=== PATIENT | female | born 1995 | race Caucasian/White ===

== ENCOUNTER 2018-03-27 13:47 | Emergency (ER) | payer OTHER ==
[2018-03-27 14:13] VITALS: BP 100/65
[2018-03-27] MEDS ORDERED: Tetan/Diph/Pertus SYR(Tdap)* 0.5 ML SYR(BOOSTRIX) use SYR IM ONE (14:17)
--- NOTE | 2018-03-27 14:32 | ED ---
Skin Complaint - HPI Summary HPI Summary: 23 yr old cut right lateral calf on piece of glass when taking out her trash. Injury occurred in mid morning. Tdap unknown last. Complains of some oozing. No other complaints. - History of Current Complaint Chief Complaint: UCLaceration Time Seen by Provider: 03/27/18 14:14 Stated Complaint: RIGHT LEG LACERATION Hx Last Menstrual Period: 03/15/18 Pain Intensity: 2 - Allergy/Home Medications Allergies/Adverse Reactions: Allergies Allergy/AdvReac Type Severity Reaction Status Date / Time No Known Allergies Allergy Verified 03/27/18 14:10 Home Medications: Home Medications Levonorgestrel (Iud) [Liletta IUD] 18.6 mcg IU ONCE 03/27/18 [History Confirmed 03/27/18] PMH/Surg Hx/FS Hx/Imm Hx Endocrine/Hematology History: Denies: Hx Diabetes, Hx Thyroid Disease Cardiovascular History: Denies: Hx Congestive Heart Failure, Hx Deep Vein Thrombosis, Hx Hypertension , Hx Myocardial Infarction, Hx Pacemaker/ICD Respiratory History: Denies: Hx Asthma, Hx Chronic Obstructive Pulmonary Disease (COPD), Hx Lung Cancer, Hx Pneumonia, Hx Pulmonary Embolism GI History: Denies: Hx Gall Bladder Disease, Hx Gastrointestinal Bleed, Hx Ulcer, Hx Urosepsis History: Denies: Hx Kidney Stones, Hx Renal Disease Sensory History: Denies: Hx Hearing Aid Neurological History: Denies: Hx Dementia, Hx Migraine, Hx Seizures, Hx Transient Ischemic Attacks (TIA) Psychiatric History: Denies: Hx Anxiety, Hx Depression, Hx Panic Disorder, Hx Schizophrenia, Hx Bipolar Disorder Infectious Disease History: No Infectious Disease History: Denies: Traveled Outside the [place] in Last 30 Days - Family History Known Family History: Positive: None Negative: Diabetes - Social History Occupation: Employed Full-time Alcohol Use: Occasionally Substance Use Type: Reports: None Smoking Status (MU): Never Smoked Tobacco Review of Systems Constitutional: Negative Positive: Other - cut on leg All Other Systems Reviewed And Are Negative: Yes Physical Exam Vital Signs On Initial Exam: Initial Vitals Temp Pulse Resp BP Pulse Ox 98.7 F 80 18 100/65 99 03/27/18 14:06 03/27/18 14:06 03/27/18 14:06 03/27/18 14:06 03/27/18 14:06 Procedures - Laceration/Wound Repair 1 Location: lower extremity Description: Linear Length, Depth and Shape: 4 cm superficial laceration barely through the epidermus, No FB Betadine Prep?: No Irrigated w/ Saline (ccs): 300 Laceration/Wound Explored: clean Closure: Skin Adhesive Sterile Dressing Applied?: No - wound was glued. Diagnostics - Vital Signs Vital Signs Temp Pulse Resp BP Pulse Ox 03/27/18 14:06 98.7 F 80 18 100/65 99 - Laboratory Lab Statement: Any lab studies that have been ordered have been reviewed, and results considered in the medical decision making process. Course/Dx - Course Course Of Treatment: superficial leg lac. no FB. The wound was glued with good approximation. TDAP updated. DC home. - Diagnoses Provider Diagnoses: Laceration Discharge - Sign-Out/Discharge Documenting (check all that apply): Patient Departure - Discharge Plan Condition: Good Disposition: HOME Patient Education Materials: Skin Adhesive Care (ED), Laceration (DC) Referrals: Zonia Tyson PA [Primary Care Provider] - 2 Days - Billing Disposition and Condition Condition: GOOD Disposition: Home
== END 2018-03-27 14:35 | disposition home or self-care (01) ==
LOC: UCCORT 13:47
DX: S81.811A Laceration without foreign body, right lower leg, initial encounter (principal); W25.XXXA Contact with sharp glass, initial encounter; Y93.89 Activity, other specified; Y92.008 Other place in unspecified non-institutional (private) residence as the place of occurrence of the external cause
CPT/HCPCS: 90715; 96372; 99211; G0463

== ENCOUNTER 2019-02-12 13:10 | Emergency (ER) | payer OTHER ==
[2019-02-12 13:32] VITALS: BP 106/66
--- NOTE | 2019-02-12 14:01 | UC ---
General HPI - HPI Summary HPI Summary: on 02/06/19, pt picked up a 30 month old child while at work. the child threw himself in an effort to get away and "strained my arm"-pt is pointing to her L lower bicep. she noted some ongoing mild soreness to that area but was able to continue working. she states that over the weekend, she did a lot of lifting at a garage sale. upon waking this am, she noted "pain in my back" "around my shoulder blade"-pt is pointing to her L medial shoulder blade area. she self tx with heat, motrin 600mg at 6am and then 400mg at 10am. she denies neck pain and numbness/tingling L arm. - History of Current Complaint Chief Complaint: UCUpperExtremity Stated Complaint: WC-LEFT ARM INJURY(02/06/19) Time Seen by Provider: 02/12/19 13:21 Hx Obtained From: Patient Hx Last Menstrual Period: IUD Pain Intensity: 6 Aggravating: movement Associated Signs & Symptoms: Negative: Chest Pain, SOB - Allergy/Home Medications Allergies/Adverse Reactions: Allergies Allergy/AdvReac Type Severity Reaction Status Date / Time No Known Allergies Allergy Verified 02/12/19 13:25 Home Medications: Home Medications busPIRone TAB* [Buspar *] 30 mg PO BID 02/12/19 [History Confirmed 02/12/19] PMH/Surg Hx/FS Hx/Imm Hx Psychological History: Anxiety - Surgical History Surgical History: None - Family History Known Family History: Positive: None Negative: Diabetes - Social History Occupation: Employed Full-time Alcohol Use: Occasionally Substance Use Type: None Smoking Status (MU): Never Smoked Tobacco - Immunization History Most Recent Influenza Vaccination: has not had Review of Systems All Other Systems Reviewed And Are Negative: No Skin: Negative: Rash Musculoskeletal: Negative: Decreased ROM, Edema Neurological: Negative: Weakness, Paresthesia, Numbness Physical Exam Triage Information Reviewed: Yes Appearance: Well-Appearing Vital Signs: Initial Vital Signs Temp 97.7 F 02/12/19 13:27 Pulse 81 02/12/19 13:27 Resp 16 02/12/19 13:27 BP 106/66 02/12/19 13:27 Pulse Ox 99 02/12/19 13:27 Vital Signs Reviewed: Yes Neck: Positive: Supple, Nontender, No Lymphadenopathy, Other: - c-spine is non tender. Respiratory: Positive: No respiratory distress Cardiovascular: Positive: RRR Musculoskeletal: Positive: Other: - Pt's trunk, back and LUE are without gross deformtiy, swelling or discoloration. Her spine in non tender to palpation and rom is intact. There is tenderness over the left side of her trapezius mm, medial to the L scapula. The scapula in non tender. LUE: no gross deformity, swelling or discoloration. pt has mild tenderness over her distal bicep only. she is able to contract that bicep wihout complaints. the shoulder, tricep, elbow, forearm, wrist and hand arm non tender. The entire LUE has full s/v/m function including ROM. The shoulder has a negative drop arm test and negative anterior stress test. Neurological: Positive: Alert Psychological: Positive: Age Appropriate Behavior Skin Exam: Normal Skin: Negative: Rashes Course/Dx - Differential Dx - Multi-Symptom Differential Diagnoses: Other - no concern for fx or dislocation. hx and PE supports a bicep mm strain on 02/06/19. the trapezius mm strain began after pt reports doing a lot of lift at a garage sale over the weekend. will tx with an nsaid, mm relaxor and limited duty plus refer to occ med. - Diagnoses Provider Diagnosis: Strain of left biceps, Trapezius muscle strain Discharge - Sign-Out/Discharge Documenting (check all that apply): Patient Departure All imaging exams completed and their final reports reviewed: No Studies - Discharge Plan Condition: Stable Disposition: HOME Prescriptions: Cyclobenzaprine TAB* [Flexeril 10 MG TAB*] 10 mg PO TID PRN #10 tab PRN Reason: Spasms - Muscle Ibuprofen TAB* [Motrin TAB* 600 MG] 600 mg PO Q8H 5 Days #15 tab Patient Education Materials: Muscle Strain (ED) Referrals: Ron Garcia MD [Medical Doctor] - 4 Days - Billing Disposition and Condition Condition: STABLE Disposition: Home
== END 2019-02-12 14:17 | disposition home or self-care (01) ==
LOC: UCCORT 13:10
DX: S46.212A Strain of muscle, fascia and tendon of other parts of biceps, left arm, initial encounter (principal); X50.0XXA Overexertion from strenuous movement or load, initial encounter; Y93.89 Activity, other specified; Y92.9 Unspecified place or not applicable; M65.812 Other synovitis and tenosynovitis, left shoulder; Y92.008 Other place in unspecified non-institutional (private) residence as the place of occurrence of the external cause; F41.9 Anxiety disorder, unspecified
CPT/HCPCS: 99212; G0463

== ENCOUNTER 2019-02-17 17:06 | Emergency (ER) | payer OTHER ==
[2019-02-17] MEDS ORDERED: Acetaminophen TAB* 325 MG PO ONE (17:33)
--- NOTE | 2019-02-17 17:35 | ED ---
Throat Pain/Nasal Congestion - HPI Summary HPI Summary: 24 yr old female with the complaint of fever, chills, sore throat, headache, mild nausea. The patient has been ill for about one day. The patient feels a litte light headed and dizzy. She denies diarrhea. She denies urinary symptoms. - History of Current Complaint Chief Complaint: UCRespiratory Time Seen by Provider: 02/17/19 17:33 - Allergies/Home Medications Allergies/Adverse Reactions: Allergies Allergy/AdvReac Type Severity Reaction Status Date / Time No Known Allergies Allergy Verified 02/17/19 17:18 Home Medications: Home Medications Ibuprofen TAB* [Motrin TAB* 600 MG] 400 mg PO Q8H PRN 02/17/19 [History] PMH/Surg Hx/FS Hx/Imm Hx Endocrine/Hematology History: Denies: Hx Diabetes, Hx Thyroid Disease Cardiovascular History: Denies: Hx Congestive Heart Failure, Hx Deep Vein Thrombosis, Hx Hypertension , Hx Myocardial Infarction, Hx Pacemaker/ICD Respiratory History: Denies: Hx Asthma, Hx Chronic Obstructive Pulmonary Disease (COPD), Hx Lung Cancer, Hx Pneumonia, Hx Pulmonary Embolism GI History: Denies: Hx Gall Bladder Disease, Hx Gastrointestinal Bleed, Hx Ulcer, Hx Urosepsis History: Denies: Hx Kidney Stones, Hx Renal Disease Neurological History: Denies: Hx Dementia, Hx Migraine, Hx Seizures, Hx Transient Ischemic Attacks (TIA) Psychiatric History: Denies: Hx Anxiety, Hx Depression, Hx Panic Disorder, Hx Schizophrenia, Hx Bipolar Disorder Infectious Disease History: No Infectious Disease History: Denies: Traveled Outside the [place] in Last 30 Days - Family History Known Family History: Positive: None Negative: Diabetes - Social History Alcohol Use: Occasionally Substance Use Type: Reports: None Smoking Status (MU): Never Smoked Tobacco Review of Systems Positive: Fever, Chills Positive: Sore Throat Positive: Myalgia Positive: Headache All Other Systems Reviewed And Are Negative: Yes Physical Exam Triage Information Reviewed: Yes Vital Signs On Initial Exam: Initial Vitals Temp Pulse Resp BP Pulse Ox 101.1 F 126 20 119/66 99 02/17/19 17:21 02/17/19 17:21 02/17/19 17:21 02/17/19 17:21 02/17/19 17:21 Vital Signs Reviewed: Yes Appearance: Positive: Well-Appearing, No Pain Distress Skin: Positive: Warm, Skin Color Reflects Adequate Perfusion Head/Face: Positive: Normal Head/Face Inspection Eyes: Positive: EOMI, [place], Other: - no photophobia, no neck stiffness ENT: Positive: Pharyngeal erythema, TMs normal. Negative: Nasal congestion, Nasal drainage Neck: Positive: Nontender. Negative: Nuchal Rigidity Respiratory/Lung Sounds: Positive: Clear to Auscultation, Breath Sounds Present Cardiovascular: Positive: RRR. Negative: Murmur Abdomen Description: Negative: Distended Musculoskeletal: Positive: Strength/ROM Intact Neurological: Positive: Sensory/Motor Intact, Alert, Oriented to Person Place, Time, CN Intact II-III, Normal Gait, Speech Normal Psychiatric: Positive: Normal Diagnostics - Vital Signs Vital Signs Temp Pulse Resp BP Pulse Ox 02/17/19 17:21 101.1 F 126 20 119/66 99 - Laboratory Lab Statement: Any lab studies that have been ordered have been reviewed, and results considered in the medical decision making process. Re-Evaluation - Re-Evaluation First Eval Re-Evaluation Time: 18:43 Change: Improved Comment: On reevaluation the patient states she feels much better after tylenol motrin. She would like to go home. EENT Course/Dx - Course Course Of Treatment: 24 yr old with viral syndrome, fever, sore throat. Rapid strep neg. UA is neg. She is drinking PO fluids well, and she states she is feeling much better now with fever reduction. She knows for any high fever or not feeling well she needs to go to the ER. - Diagnoses Provider Diagnoses: Pharyngitis Discharge - Sign-Out/Discharge Documenting (check all that apply): Patient Departure All imaging exams completed and their final reports reviewed: No Studies - Discharge Plan Condition: Good Disposition: HOME Patient Education Materials: Pharyngitis (ED) Referrals: Zonia Tyson PA [Primary Care Provider] - 1 Day - Billing Disposition and Condition Condition: GOOD Disposition: Home
[2019-02-17] MEDS ORDERED: Ibuprofen TAB* 600 MG PO ONE (17:48)
[2019-02-17] MEDS ORDERED: Ibuprofen TAB* 400 MG PO ONE (17:51)
[2019-02-17 18:48] VITALS: BP 102/89
== END 2019-02-17 19:05 | disposition home or self-care (01) ==
LOC: UCCORT 17:06
DX: J02.9 Acute pharyngitis, unspecified (principal)
CPT/HCPCS: 81003; 87086; 87651; 99212; A9270-GY; G0463

== ENCOUNTER 2019-04-02 18:04 | Emergency (ER) | payer OTHER ==
[2019-04-02 18:53] VITALS: BP 120/65
[2019-04-02] MEDS ORDERED: Dexamethasone IV* 4 MG/ML 1 ML (4 MG) PO ONE (19:07)
--- NOTE | 2019-04-02 19:13 | ED ---
Throat Pain/Nasal Congestion - HPI Summary HPI Summary: 24 yr old female with the complaint of throat pain, right sided, and radiates into the ear. Pain onset four days ago and progressive worse. Harder to eat due to pain. No drooling, no stridor. No fever. No other complaints. - History of Current Complaint Chief Complaint: UCGeneralIllness Time Seen by Provider: 04/02/19 18:57 - Allergies/Home Medications Allergies/Adverse Reactions: Allergies Allergy/AdvReac Type Severity Reaction Status Date / Time No Known Allergies Allergy Verified 04/02/19 18:48 Home Medications: Home Medications D-Methorphan/PE/Acetaminophen [Vicks Dayquil Cold & Flu 10-5-325 mg/15Ml] 15 - 30 ml PO Q6H PRN 04/02/19 [History Confirmed 04/02/19] Ibuprofen TAB* [Advil TAB*] 400 mg PO Q6H PRN 04/02/19 [History Confirmed ] PMH/Surg Hx/FS Hx/Imm Hx Endocrine/Hematology History: Denies: Hx Diabetes, Hx Thyroid Disease Cardiovascular History: Denies: Hx Congestive Heart Failure, Hx Deep Vein Thrombosis, Hx Hypertension , Hx Myocardial Infarction, Hx Pacemaker/ICD Respiratory History: Denies: Hx Asthma, Hx Chronic Obstructive Pulmonary Disease (COPD), Hx Lung Cancer, Hx Pneumonia, Hx Pulmonary Embolism GI History: Denies: Hx Gall Bladder Disease, Hx Gastrointestinal Bleed, Hx Ulcer, Hx Urosepsis History: Denies: Hx Kidney Stones, Hx Renal Disease Neurological History: Denies: Hx Dementia, Hx Migraine, Hx Seizures, Hx Transient Ischemic Attacks (TIA) Psychiatric History: Denies: Hx Anxiety, Hx Depression, Hx Panic Disorder, Hx Schizophrenia, Hx Bipolar Disorder Infectious Disease History: No Infectious Disease History: Denies: Traveled Outside the [place] in Last 30 Days - Family History Known Family History: Positive: None Negative: Diabetes - Social History Occupation: Employed Full-time Alcohol Use: Occasionally Substance Use Type: Reports: None Smoking Status (MU): Never Smoked Tobacco Review of Systems Constitutional: Negative Positive: Sore Throat All Other Systems Reviewed And Are Negative: Yes Physical Exam Triage Information Reviewed: Yes Vital Signs On Initial Exam: Initial Vitals Temp Pulse Resp BP Pulse Ox 99.8 F 96 18 120/65 100 04/02/19 18:45 04/02/19 18:45 04/02/19 18:45 04/02/19 18:45 04/02/19 18:45 Vital Signs Reviewed: Yes Appearance: Positive: Well-Appearing, No Pain Distress Skin: Positive: Warm, Skin Color Reflects Adequate Perfusion Head/Face: Positive: Normal Head/Face Inspection Eyes: Positive: EOMI, [place] ENT: Positive: Pharyngeal erythema, TMs normal, Tonsillar swelling - right side only; uvula is in the midline. No stridor, no drooling.. Negative: Nasal congestion, Nasal drainage Neck: Positive: Nontender Respiratory/Lung Sounds: Positive: Clear to Auscultation, Breath Sounds Present Cardiovascular: Positive: RRR. Negative: Murmur Abdomen Description: Positive: Nontender. Negative: Distended Musculoskeletal: Positive: Strength/ROM Intact Neurological: Positive: Sensory/Motor Intact, Alert, Oriented to Person Place, Time, CN Intact II-III, Normal Gait, Speech Normal Psychiatric: Positive: Normal Diagnostics - Vital Signs Vital Signs Temp Pulse Resp BP Pulse Ox 04/02/19 18:45 99.8 F 96 18 120/65 100 - Laboratory Lab Statement: Any lab studies that have been ordered have been reviewed, and results considered in the medical decision making process. EENT Course/Dx - Course Course Of Treatment: 24 yr old with tonsillitis right sided. No peritonsilar abscess at this point. Rx clindamycin. FU with PMD and ENT referral. - Diagnoses Provider Diagnoses: Tonsillitis Discharge - Sign-Out/Discharge Documenting (check all that apply): Patient Departure All imaging exams completed and their final reports reviewed: No Studies - Discharge Plan Condition: Good Disposition: HOME Prescriptions: Clindamycin Cap(NF) [Clindamycin Cap 300 mg Cap(NF)] 300 mg PO Q6H #40 cap Patient Education Materials: Tonsillitis (ED) Referrals: Zonia Tyson PA [Primary Care Provider] - 2 Days - Billing Disposition and Condition Condition: GOOD Disposition: Home
== END 2019-04-02 19:36 | disposition home or self-care (01) ==
LOC: UCCORT 18:04
DX: J03.90 Acute tonsillitis, unspecified (principal)
CPT/HCPCS: 87651; 99212; G0463; J1100